=== PATIENT | male | born 1970 ===

== ENCOUNTER 2017-08-28 15:12 | Emergency (ER) | payer SELFPAY ==
[2017-08-28 15:38] VITALS: BP 123/92
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
== END 2017-08-28 16:41 | disposition home or self-care (01) ==
LOC: UCEAST 15:12
DX: T14.8XXA Other injury of unspecified body region, initial encounter (principal); X58.XXXA Exposure to other specified factors, initial encounter; Y92.9 Unspecified place or not applicable
CPT/HCPCS: 99211; G0463